=== PATIENT | female | born 1985 | race Caucasian/White ===

== ENCOUNTER 2023-05-03 16:04 | Inpatient (IN) ==
[2023-05-03] MEDS ORDERED: Penicillin G Potassium IV 5,000,000 UNITS in NS 0.9% 100 ml BAG 100 ML IVPB ONE (16:46)
[2023-05-03] MEDS ORDERED: Buffered Lidocaine 1% SYRIN 1 ml INTRADERM ONE (16:46)
[2023-05-03] MEDS ORDERED: Lactated Ringers 1000 ml BAG 1,000 ML IV ONE (16:46)
[2023-05-03] MEDS ORDERED: Lidocaine 1% VIAL 10 MG/ML 30 ML VIAL INJ PRN (16:46)
[2023-05-03] MEDS ORDERED: Oxytocin in LR 20,000 MILLI.UNIT/1,000 ML BAG IV SCH (16:50)
[2023-05-03] MEDS ORDERED: Lidocaine 1.5% EPI 1:200,000 30 ML SDV ONE (17:57)
[2023-05-03 18:23] LABS: ABS Lymphocytes 1.5 10^3/uL (1.0-4.8); ABS Monocytes 0.5 10^3/uL (0.0-0.9); ABS Neutrophils 9.2 10^3/uL (1.5-7.6); ABS Nucleated RBC 0.03 10^3/ul; Eosinophil % 0.1 %; Hematocrit 30.6 % (35-45); Hemoglobin 10.3 g/dL (11.5-14.3); Mean Corpuscular Hemoglobin 29.4 pg (27-33); Mean Corpuscular Hgb Conc 33.6 g/dL (31-36); Mean Corpuscular Volume 87.6 fL (80-97); Mean Platelet Volume 11.2 fL (7.5-11.2); Nucleated Red Blood Cells % 0.3 %/100WBC (0.0-0.8); Platelet Count 125 10^3/uL (150-450); Red Blood Count 3.49 10^6/uL (3.63-4.92); White Blood Count 11.2 10^3/uL (3.8-11.8)
[2023-05-03] MEDS: OBEPIDURAL (200 ML) 200 ML EPIDURAL ONE (18:48)
[2023-05-03 20:34] LABS: Hepatitis B Surface Antigen Nonreactive (Nonreactive)
[2023-05-03 20:45] LABS: HIV 4th Generation Nonreactive (Nonreactive)
[2023-05-03] MEDS: Lactated Ringers 1000 ml BAG 1,000 ML IV SCH (21:09)
[2023-05-03] MEDS: Nicotine PATCH 21 MG/24 HR PATCH TRANSDERM SCH (21:16)
[2023-05-03 21:22] LABS: Urine Appearance Clear; Urine Bilirubin Negative (Negative); Urine Blood Negative (Negative); Urine Color Yellow; Urine Glucose Negative (Negative); Urine Ketones Negative (Negative); Urine Nitrite Negative (Negative); Urine Protein Negative (Negative); Urine Specific Gravity 1.016 (1.002-1.030); Urine Urobilinogen Negative (Negative)
[2023-05-03 21:36] LABS: Urine Benzodiazepine Screen None Detected (None Detect); Urine Cannabinoids Screen None Detected (None Detect); Urine Opiates Screen None Detected (None Detect)
[2023-05-03] MEDS: Penicillin G Potassium IV 3,000,000 UNITS in NS 0.9% 100 ml BAG 100 ML IVPB SCH (22:09)
[2023-05-03 22:52] LABS: Hepatitis C Antibody Reactive (Negative)
[2023-05-04] MEDS: Penicillin G Potassium IV 3,000,000 UNITS in NS 0.9% 100 ml BAG 100 ML IVPB SCH ×2 (02:03→06:42)
[2023-05-04] MEDS: Lactated Ringers 1000 ml BAG 1,000 ML IV SCH (02:28)
[2023-05-04] MEDS ORDERED: Ondansetron 4 mg VIAL 2 MG/ML 2 ml VIAL IV PRN (03:42)
[2023-05-04] MEDS ORDERED: OBEPIDURAL (200 ML) 200 ML EPIDURAL ONE (05:57)
[2023-05-04] MEDS: OBEPIDURAL (200 ML) 200 ML EPIDURAL ONE (06:05)
[2023-05-04] MEDS ORDERED: Sodium Citrate/Citric Acid LIQ 15 ML UDC PO PRN (06:16)
[2023-05-04] MEDS ORDERED: Lactated Ringers 1000 ml BAG 1,000 ML IV ONE (06:16)
[2023-05-04] MEDS ORDERED: Phenylephrine 40 mcg/mL 10mL (400mcg) SYRINGE IV PUSH PRN ×2 (06:16)
[2023-05-04] MEDS ORDERED: Lactated Ringers 1000 ml BAG 1,000 ML IV SCH ×2 (07:00→09:00)
[2023-05-04] MEDS ORDERED: OBEPIDURAL (200 ML) 200 ML EPIDURAL SCH (07:00)
[2023-05-04] MEDS: fentaNYL 100 mcg/2 ml 50 MCG/ML VIAL IV SLOW PU ONE ×2 (07:47→08:13)
[2023-05-04] MEDS ORDERED: Naloxone 0.4 mg VIAL 0.4 mg/ml 1 ml VIAL ONE (08:15)
[2023-05-04] MEDS ORDERED: Witch Hazel PAD JAR TOPICAL PRN (09:00)
[2023-05-04] MEDS ORDERED: Glycerin ADULT 2.4 gm SUPP PR PRN (09:00)
[2023-05-04] MEDS ORDERED: Dibucaine 1% OINT 28.35 GM TUBE PR PRN (09:00)
[2023-05-04] MEDS ORDERED: Oxytocin in LR 20,000 MILLI.UNIT/1,000 ML BAG IV SCH (09:00)
[2023-05-04] MEDS ORDERED: fentaNYL 100 mcg/2 ml 50 MCG/ML VIAL IV SLOW PU PRN ×2 (09:38→10:33)
[2023-05-04] MEDS ORDERED: HYDROmorphone 1 MG/1 ML SYRINGE IV SLOW PU PRN ×2 (11:29→13:51)
[2023-05-04 12:38] LABS: Calcium 8.7 mg/dL (8.6-10.3); Creatinine, Serum 0.73 mg/dL (0.51-0.95); eGFR CKD-EPI 108.6 (>60)
[2023-05-04 13:54] VITALS: BP 127/67
[2023-05-04] MEDS: Nicotine PATCH 21 MG/24 HR PATCH TRANSDERM SCH (14:01)
[2023-05-04] MEDS ORDERED: HYDROmorphone 1 MG/1 ML SYRINGE IV SLOW PU ONE (14:16)
[2023-05-04] MEDS ORDERED: Buffered Lidocaine 1% SYRIN 1 ml ONE (14:53)
[2023-05-04] MEDS ORDERED: Lidocaine 1% MPF 5 ML VIAL ONE (14:54)
== END 2023-05-04 16:00 | disposition left against medical advice (07) | DRG 560 ==
LOC: MCHOBOUT 16:04 → MCHOB 17:03 → MED 05-04 14:03
PROVIDERS: ADMIT Obstetrics & Gynecology; ATTEND Obstetrics & Gynecology